=== PATIENT | male | born 1965 | race Caucasian/White ===

== ENCOUNTER 2017-08-09 10:16 | Emergency (ER) | payer OTHER ==
[~2017-08-09] VITALS: Ht 177.8 cm; Wt 83.9 kg
[2017-08-09 10:48] VITALS: BP 151/94
[2017-08-09] MEDS: NS 1000ML 1,000 ML STA (10:50)
[2017-08-09] MEDS: ZOFRAN IV STA (10:50)
[2017-08-09] MEDS: PROTONIX IV IV STA (10:50)
--- NOTE | 2017-08-09 10:50 | NUR ---
ARRIVAL PATIENT ARRIVED VIA POV WITH COMPLAINTS OF BLOODY EMESIS X2 AND BLACK STOOL PATIENT REPORTS HISTORY OF ULCERS BUT HAS NOT SEEN A PHYSICIAN ABOUT IT
[2017-08-09 10:51] LABS: BASOPHIL # 0.1 10^3/uL (0.0-0.1); BASOPHIL % 0.3 % (0.0-0.2); EOSINOPHIL # 0.1 10^3/uL (0.0-0.2); EOSINOPHIL % 0.5 % (0.0-5.0); HEMOGLOBIN 11.1 g/dL (13.9-16.3); LYMPHOCYTES # 1.4 10^3/uL (1.0-4.8); LYMPHOCYTES % 9.5 % (24.0-44.0); MEAN CELL HGB 31.2 pg (26-34); MEAN CELL HGB CONCENTRATION 33.2 g/dL (33-37); MEAN CORP VOLUME 93.8 fL (78-100); MEAN PLATELET VOLUME 12.2 fL (7.8-11.0); MONOCYTES # 0.7 10^3/uL (0.3-0.8); MONOCYTES % 4.8 % (5.0-12.0); NEUTROPHIL # 12.8 10^3/uL (1.8-7.7); NEUTROPHILS % 84.7 % (41.0-85.0); RED CELL DISTRIBUTION WIDTH 14.9 % (11.5-14.5); WHITE BLOOD CELL 15.1 10^3/uL (4.5-11.0)
[2017-08-09] MEDS ORDERED: PROTONIX IV IV ONE (10:51)
[2017-08-09] MEDS ORDERED: ZOFRAN ONE (10:51)
[2017-08-09] MEDS ORDERED: NS 1000ML 1,000 ML ONE (10:51)
--- NOTE | 2017-08-09 10:54 | ER.PDOC ---
General Chief Complaint: GI Bleed/Rectal Pain Stated Complaint: SOB,PALPATATIONS,POSSIBLE GI BLEED,MALE Time seen by MD: 11:11 Source: patient Exam Limitations: no limitations History of Present Illness Timing/Duration: 24 hours Severity/Quality: moderate Associated Symptoms: dark stools, tarry stools, vomitng bright blood, light- headedness Prior symptoms/Treatment: Similar symptoms previous Allergies: Coded Allergies: No Known Allergies (Unverified , 05/23/14) Home Meds No Active Prescriptions or Reported Meds Past Medical History Surgical History: no surgical history Social History Smoking: non-smoker Alcohol Use: occassionally Drug Use: none Reviewed Nursing Reviewed: Vital Signs, Abn. Noted All Other Systems: Reviewed and Negative Physical Exam General Appearance: No Apparent Distress, WD/WN EENT: eyes nml inspection, nml ENT inspection, pharynx nml Neck: nml inspection, non-tender Respiratory: chest non-tender, lungs clear, normal breath sounds, no respiratory distress, no accessory muscle use Cardiovascular: Tachycardia Gastrointestinal: Normal Bowel Sounds Rectal: Heme Positive Stool Back: Normal Inspection, No CVA Tenderness, No Vertebral Tenderness Extremities: Normal Range of Motion, Non-Tender, Normal Inspection, No Pedal Edema, No Calf Tenderness, Normal Capillary Refill 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 NML as Tested, No Motor/Sensory Deficits, Alert, Normal Mood/Affect, Oriented x 3 Skin: Normal Color, Warm/Dry Lymphatic: No Adenopathy Results/Orders Results/Orders Laboratory Tests Test 08/09/17 10:42 White Blood Count 15.1 10^3/uL (4.5-11.0) Red Blood Count 3.56 10^6/uL (4.50-5.90) Hemoglobin 11.1 g/dL (13.9-16.3) Hematocrit 33.4 % (37.0-53.0) Mean Corpuscular Volume 93.8 fL (78-100) Mean Corpuscular Hemoglobin 31.2 pg (26-34) Mean Corpuscular Hemoglobin Concent 33.2 g/dL (33-37) Red Cell Distribution Width 14.9 % (11.5-14.5) Platelet Count 147 10^3/uL (150-400) Mean Platelet Volume 12.2 fL (7.8-11.0) Neutrophils (%) (Auto) 84.7 % (41.0-85.0) Lymphocytes (%) (Auto) 9.5 % (24.0-44.0) Monocytes (%) (Auto) 4.8 % (5.0-12.0) Neutrophils # (Auto) 12.8 10^3/uL (1.8-7.7) Lymphocytes # (Auto) 1.4 10^3/uL (1.0-4.8) Monocytes # (Auto) 0.7 10^3/uL (0.3-0.8) Absolute Immature Granulocyte (auto 0.03 10^3 u/L (0-2) Eosinophils % 0.5 % (0.0-5.0) Basophils % 0.3 % (0.0-0.2) Basophils # 0.1 10^3/uL (0.0-0.1) Eosinophil Count 0.1 10^3/uL (0.0-0.2) Prothrombin Time 13.0 SEC (9.8-11.9) Prothrombin Time INR (Non-Therap) 1.3 Activated Partial Thromboplast Time 23.0 SEC (24.67-30.72) Sodium Level 134 mmol/L (132-145) Potassium Level 3.5 mmol/L (3.6-5.2) Chloride Level 98.0 mmol/L (96-109) Carbon Dioxide Level 24.5 mmol/L (20.0-32) Anion Gap 15.0 Blood Urea Nitrogen 29 mg/dL (7-18) Creatinine 1.05 mg/dL (0.59-1.40) Estimated GFR () 90.5 (>/=60) BUN/Creatinine Ratio 27.0 Glucose Level 160 mg/dL (70-110) Calcium Level 9.1 mg/dL (8.4-10.5) Total Bilirubin 4.2 mg/dL (0.2-1.0) Aspartate Amino Transf (AST/SGOT) 77 U/L (0-35) Alanine Aminotransferase (ALT/SGPT) 51 U/L (12-78) Alkaline Phosphatase 93 U/L (50-136) Ammonia 18 umol/L (11-35) Total Protein 8.2 g/dL (6.4-8.2) Albumin 3.0 g/dL (3.4-5.0) Globulin 5.2 Amylase Level 32 U/L (25-115) Lipase 121 U/L (114-286) Serum Alcohol < 3 mg/dL (3-50) Percent Immature Gran (Cell Imm) 0.20 % (0.00-0.50) Helicobacter pylori Screen POSITIVE (NEGATIVE) Administered Medications Medications (Trade) Dose Ordered Sig/Rina Route PRN Reason Start Time Stop Time Status Last Admin Dose Admin Sodium Chloride 1,000 ml @ 0 mls/hr Q0M STAT IV 08/09/17 10:42 08/09/17 10:45 DC 08/09/17 10:50 Pantoprazole Sodium (Protonix Iv) 80 mg STAT STAT IV 08/09/17 10:44 08/09/17 10:46 DC 08/09/17 10:50 Ondansetron HCl (Zofran) 4 mg STAT STAT IV 08/09/17 10:44 08/09/17 10:46 DC 08/09/17 10:50 Departure Time of Disposition: 13:33 Disposition: 09 ADMITTED INPATIENT Impression: Primary Impression: Gastrointestinal hemorrhage Condition: Against Medical Advice Referrals: PCP,UNKNOWN (PCP) PRIMARY CARE PROVIDER Scripts No Active Prescriptions or Reported Meds Duration or Time Spent with Pa: 2 hrs DAXA OLIVAREZ MD August 09, 2017 10:53
[2017-08-09 11:07] LABS: CALCIUM 9.1 mg/dL (8.4-10.5); CARBON DIOXIDE 24.5 mmol/L (20.0-32)
--- NOTE | 2017-08-09 11:14 | NUR ---
MADISYN OLIVAREZ ON PHONE
--- NOTE | 2017-08-09 11:25 | NUR ---
VADIM OLIVAREZ ON PHONE FOR CONSULT
--- NOTE | 2017-08-09 11:35 | NUR ---
MADISYN OLIVAREZ ON PHONE
--- NOTE | 2017-08-09 14:09 | DIREP ---
PROCEDURE:CT ABD/PELVIS WITH CONTRAST TECHNIQUE:Following the intravenous administration of contrast material, axial cuts were obtained from the dome of the diaphragm to the ischial tuberosities. The images were viewed at lung and soft tissue settings. Sagittal and coronal reconstructions are provided. COMPARISON:None. INDICATIONS:UGI BLEED FINDINGS: LOWER CHEST:The lung bases are clear. LIVER:Questionable nodularity of the liver may represent cirrhosis. BILIARY:Normal. PANCREAS:Normal. SPLEEN:The spleen is mildly enlarged measuring 14.92 cm craniocaudal series 36066 image 37. URINARY TRACT:Normal. Small cyst in the right kidney. ADRENALS:Normal. AORTA/VASCULAR:Normal. RETROPERITONEUM:Normal. BOWEL/MESENTERY:Gastric fundal diverticulum series 2, image 22. ABDOMINAL WALL:Normal. PELVIS:Surgical clips in the scrotum. BONES:Disc narrowing with vacuum changes L5-S1. Schmorl's node superior endplate of L4. OTHER:Normal. CONCLUSION: 1. Findings suggestive of cirrhosis. 2. Mild splenomegaly. 3. Previous scrotal surgery. Dictated by: Ty Temple M.D. on 08/09/2017 at 02:02 PM
--- NOTE | 2017-08-09 14:19 | NUR ---
VADIM OLIVAREZ ON PHONE
[2017-08-09 14:56] VITALS: BP 151/94
== END 2017-08-09 14:50 | disposition other institution (70) ==
LOC: ER 10:16
DX: K92.2 Gastrointestinal hemorrhage, unspecified (principal)
CPT/HCPCS: 36415; 74177; 80053; 82140; 82150; 83690; 85025; 85610; 85730; 86677; 86900; 96361; 96374; 96375; 99285; C9113; G0481; J2405; J7030; Q9963; Q9965